=== PATIENT | female | born 1975 | race Caucasian/White ===

== ENCOUNTER 2017-07-11 15:52 | Emergency (ER) | payer OTHER ==
[~2017-07-11] VITALS: Ht 165.1 cm; Wt 102.1 kg
[2017-07-11] MEDS ORDERED: LOPRESSOR25 MG PO (16:06)
[2017-07-11] MEDS ORDERED: NORVASC5 MG PO (16:07)
[2017-07-11] MEDS ORDERED: SYNTHROID50 MCG PO (16:07)
[2017-07-11] MEDS ORDERED: ASPIRIN81 M1 PO (16:07)
[2017-07-11] MEDS ORDERED: CLONAZEPAM1 MG PO (16:08)
== END 2017-07-11 20:41 | disposition home or self-care (01) ==
LOC: ER 15:52
DX: N93.8 Other specified abnormal uterine and vaginal bleeding (principal)